=== PATIENT | male | born 1995 | race Caucasian/White ===

== ENCOUNTER 2019-09-20 21:42 | Emergency (ER) | payer BC ==
[~2019-09-20] VITALS: Ht 175.3 cm; Wt 88.1 kg
[~2019-09-20 21:42] MED LIST: ALBU8.5H5 INH; HYDR-36 PO; HYDR-3653 PO
[2019-09-20 21:46] VITALS: BP 140/100
[2019-09-20] MEDS ORDERED: LIDOCAINE-MPF 1%, 5ML INFIL ONE ×2 (22:00)
[2019-09-20] MEDS ORDERED: LIDOCAINE-MPF 1%, 5ML ONE ×2 (22:03→22:45)
[2019-09-20] MEDS ORDERED: CEFAZOLIN 1,000 MG ONE (22:30)
[2019-09-20] MEDS ORDERED: ONDANSETRON ODT 4 MG PO ONE (22:30)
[2019-09-20] MEDS ORDERED: ONDANSETRON ODT 4 MG ONE (22:30)
[2019-09-20] MEDS ORDERED: IBUPROFEN 600 MG TABLET ONE (22:30)
[2019-09-20] MEDS ORDERED: IBUPROFEN 600 MG TABLET PO ONE (22:30)
[2019-09-20] MEDS ORDERED: CEFAZOLIN 1,000 MG IM ONE (22:30)
[2019-09-20] MEDS ORDERED: NEOSPORIN OINT. PKT 1 PACKET ONE (23:07)
== END 2019-09-20 23:38 | disposition home or self-care (01) ==
LOC: ED 23:00
DX: S62.515B Nondisplaced fracture of proximal phalanx of left thumb, initial encounter for open fracture (principal); S61.112A Laceration without foreign body of left thumb with damage to nail, initial encounter; W31.2XXA Contact with powered woodworking and forming machines, initial encounter; Y93.89 Activity, other specified; Y92.009 Unspecified place in unspecified non-institutional (private) residence as the place of occurrence of the external cause; Y99.8 Other external cause status
CPT/HCPCS: 11760; 29125; 73130; 96372; 99285; J0690; Q0162